=== PATIENT | male | born 1975 | race Caucasian/White ===

== ENCOUNTER → 2016-12-28 | Outpatient (CLI) | payer BC ==
--- NOTE | 2016-12-28 09:12 | US ---
EXAMINATION TYPE: US liver DATE OF EXAM: 12/28/2016 8:09 AM COMPARISON: NONE CLINICAL HISTORY: Q44.6 Liver Cyst. EXAM MEASUREMENTS: Liver Length: 12.9 cm Gallbladder Wall: 0.2 cm CBD: 0.2 cm Right Kidney: 10.7 x 6.1 x 5.2 cm Patient had extensive overlying bowel gas making exam somewhat technically difficult. Pancreas: Obscured by bowel gas Liver: Lesion noted measuring 0.6 x0.5 x 0.7cm. This does not meet the requirements of a simple cyst . Gallbladder: wnl Evidence for sonographic Cline's sign: No CBD: wnl Right Kidney: wnl Liver lesion noted. IMPRESSION: 7 MM LESION IN THE RIGHT LOBE OF THE LIVER DOES NOT MEET THE REQUIREMENTS OF A SIMPLE CYST. CT VERSUS MR WOULD BE SUGGESTED.
== END | disposition home or self-care (01) ==
LOC: RADUSWWP 07:37
PROVIDERS: ATTEND Internal Medicine
DX: K76.9 Liver disease, unspecified (principal)
CPT/HCPCS: 76705

== ENCOUNTER → 2017-01-10 | Outpatient (CLI) | payer BC ==
--- NOTE | 2017-01-10 22:47 | CT ---
EXAMINATION TYPE: CT abdomen wo/w con DATE OF EXAM: 01/10/2017 7:17 PM COMPARISON: Correlation ultrasound 12/28/2016 HISTORY: 41-year-old male with liver cysts, other specified disease of the liver. TECHNIQUE: Contiguous axial scanning of the abdomen before and following administration of 100 ml Omn ipaque 300 IV contrast. Delayed images through the kidneys and coronal/sagittal reconstructions perf ormed. CT DLP: 916.1 mGycm Automated exposure control for dose reduction was used. FINDINGS: The heart is normal size without pericardial effusion. Lung bases are clear without pleural effusion. Initial noncontrast images show no evidence for fatty infiltration of the liver. There is small amoun t of focal fat along the anterior falciform ligament. Subcentimeter hypodensity measuring 7 mm, infer ior anterior segment 5 right hepatic lobe is too small for accurate CT characterization, likely repre sents a cyst. Portal venous system is patent. No biliary ductal dilatation. Gallbladder, adrenal glands, kidneys, spleen with hilar splenule, and pancreas appear within normal l imits. No dilated small bowel, free fluid, or free air. No mesenteric or retroperitoneal lymphadenopathy. A few scattered borderline sized lymph nodes measuring up to 5 to 6 mm are present in the mid and left mesentery. Normal appendix. Mild scattered stool within the colon without pericolonic inflammatory change. Bones: Mild degenerative disc disease lower thoracic spine and thoracolumbar junction and additional bulging disks mid to lower lumbar spine. No osseous destructive process. IMPRESSION: 1. THE 7 MM SEGMENT 5 RIGHT LIVER LOBE HYPODENSITY LIKELY CORRESPONDS TO THE QUESTIONED ULTRASOUND FI NDING. THIS IS TOO SMALL FOR ACCURATE CT CHARACTERIZATION AND MOST LIKELY REPRESENTS A CYST, PROBABLE COMPLICATED CYST GIVEN THE ULTRASOUND APPEARANCE. 2. OTHERWISE, NO SPECIFIC ABNORMALITY OF THE ABDOMEN.
== END | disposition home or self-care (01) ==
LOC: RADCTMAIN 18:20
PROVIDERS: ATTEND Internal Medicine
DX: R93.2 Abnormal findings on diagnostic imaging of liver and biliary tract (principal); K76.89 Other specified diseases of liver
CPT/HCPCS: 74170; Q9967

== ENCOUNTER → 2017-12-27 | Outpatient (CLI) | payer BC ==
--- NOTE | 2017-12-30 17:46 | CT ---
EXAMINATION TYPE: CT abdomen w con DATE OF EXAM: 12/27/2017 COMPARISON: NONE HISTORY: 42-year-old male Follow up for liver cyst. TECHNIQUE: Contiguous axial scanning of the abdomen following administration of 100 ml Omnipaque 300 IV contrast. Delayed images through the kidneys and coronal/sagittal reconstructions performed. Technologist notes that there was complication with contrast extravasation. CT DLP: 779.5 mGycm Automated exposure control for dose reduction was used. FINDINGS: Heart normal size without pericardial effusion. Lung bases clear without pleural effusion. Tiny hiatal hernia. No evidence for fatty infiltration of the liver on noncontrast images. The exam is essentially withou t IV contrast given the IV extravasation. Oral contrast is administered. Stable 7 mm hypodense lesion segment 5 right liver lobe. No additional focal liver lesion seen. Gallbladder, adrenal glands, kidneys, spleen with splenule, and pancreas show no gross abnormality. No dilated small bowel, free fluid, or free air. Scattered nonenlarged upper abdominal mesenteric lymph nodes. No mesenteric or retroperitoneal lympha denopathy. Normal appendix. Mild stool burden throughout the colon without pericolonic inflammatory change. Bladder urine distended. Pelvis not included on this exam. Bones: No osseous destructive process. Mild endplate spondylosis lower thoracic spine. Minimal bulgin g disc L4-L5 and L5/S1. IMPRESSION: 1. THERE WAS IV CONTRAST EXTRAVASATION. THE EXAM IS ESSENTIALLY A NONCONTRAST STUDY. 2. THE 7 MM HYPODENSE LESION WITHIN SEGMENT 5 OF THE RIGHT LIVER LOBE IS STABLE FOR ONE YEAR. A BENIG N CYST IS SUGGESTED AND NO ADDITIONAL FOLLOW-UP WOULD BE RECOMMENDED FOR THIS LESION.
== END | disposition home or self-care (01) ==
LOC: RADCTMAIN 16:48
PROVIDERS: ATTEND Internal Medicine
DX: K76.89 Other specified diseases of liver (principal); T80.818A Extravasation of other vesicant agent, initial encounter
CPT/HCPCS: 74160; Q9967

== ENCOUNTER → 2018-12-24 | Outpatient (CLI) | payer BC ==
--- NOTE | 2018-12-24 09:18 | CT ---
EXAMINATION TYPE: CT abdomen w con DATE OF EXAM: 12/24/2018 COMPARISON: Prior CTs January 10, 2017 and December 27, 2017. HISTORY: Liver Cyst CT DLP: 598.5 mGycm, Automated Exposure Control for Dose Reduction was Utilized. CONTRAST: CT scan of the abdomen is performed with oral and with IV Contrast, patient injected with 100 mL of I sovue 300. FINDINGS: LUNG BASES: Motion artifact degradation is present. LIVER/GB: Stable subcentimeter hypodense lesion right hepatic lobe axial image 20 is nonspecific but presumed benign given subcentimeter size and two-year stability. No new suspicious intrahepatic christian s are evident. PANCREAS: No significant abnormality is seen. SPLEEN: Stable 8 mm splenule in splenic hilum axial image 21. ADRENALS: No significant abnormality is seen. KIDNEYS: No significant abnormality is seen. BOWEL: No significant abnormality is seen. LYMPH NODES: No greater than 1cm abdominal lymph nodes are appreciated. OSSEOUS STRUCTURES: No significant abnormality is seen. OTHER: No significant additional abnormality is seen. IMPRESSION: Stable subcentimeter liver lesion presumed benign. No further follow-up is necessary. No new lesions are evident. No significant change from prior studies.
== END ==
LOC: RADCTMAIN 07:49
PROVIDERS: ATTEND Internal Medicine
DX: K76.9 Liver disease, unspecified (principal)
CPT/HCPCS: 74160; Q9967